=== PATIENT | female | born 1960 | race Caucasian/White ===

== ENCOUNTER 2024-10-25 09:58 | Outpatient (REF) | payer OTHER, SELFPAY ==
[2024-10-25 11:54] LABS: MANUAL DIFF FLAG NO
[2024-10-25 12:30] LABS: Basophils Absolute Auto 0.1 X10*3/uL (0.0-0.2); Basophils Percent Auto 1.4 % (0-2); Eosinophils Absolute Auto 0.2 X10*3/uL (0.0-0.4); Eosinophils Percent Auto 2.8 % (0-4); Hematocrit 41.7 % (37.0-47.0); Hemoglobin 13.3 g/dl (12.0-16.0); Imm Gran Abs Auto 0.01 X10*3/uL (0.00-0.03); Imm Gran Pct Auto 0.2 % (0.0-0.4); Lymphocytes Absolute Auto 1.2 X10*3/uL (1.2-4.9); Lymphocytes Percent Auto 19.3 % (20-40); Mean Corpuscular HGB Conc 31.9 g/dl (31.0-35.0); Mean Corpuscular Hemoglobin 27.4 pg (27.0-33.0); Mean Corpuscular Volume 85.8 fL (80.0-98.0); Mean Platelet Volume 9.2 fL (9.4-12.3); Monocytes Absolute Auto 0.7 X10*3/uL (0.1-1.2); Monocytes Percent Auto 11.2 % (2-11); Neutrophils Absolute Auto 4.2 x10*3/uL (2.0-8.3); Neutrophils Percent Auto 65.1 % (45-73); Platelet Count 377 X10*3/uL (160-400); Red Blood Count 4.86 X10*6/uL (4.20-5.50); Red Cell Distribution Width 13.7 % (11.0-16.0); White Blood Count 6.4 X10*3/uL (4.8-10.8)
[2024-10-25 12:58] LABS: Alanine Aminotransferase 26 U/L (0-31); Aspartate Amino Transferase 27 U/L (5-31); Estimated Glomerular Filt Rate > 60
== END 2024-10-25 09:59 | disposition home or self-care (01) ==
LOC: HO.LAB 09:58
PROVIDERS: Visit Provider Internal Medicine Rheumatology
DX: M70.61 Trochanteric bursitis, right hip (principal); M70.62 Trochanteric bursitis, left hip; M17.0 Bilateral primary osteoarthritis of knee; Z79.1 Long term (current) use of non-steroidal anti-inflammatories (NSAID)
CPT/HCPCS: 36415; 82565; 84450; 84460; 85025

== ENCOUNTER 2024-10-25 09:58 | Outpatient (AMB) | payer OTHER, SELFPAY ==
--- NOTE | 2024-10-25 10:17 | A.OFFVIS_ITS ---
Vital Signs 10/25/24 10:31 Height 5 ft 7 in Weight 238 lb 8.642 oz BMI 37.4 BP 130/92 H Blood Pressure Location Lt brachial Position Sitting Respiration 16 Pulse 63 Pulse Source Pulse Oximeter Pulse Oximetry (%) 97 Oxygen Delivery Method Room Air Intake Visit Reasons: OA/ATC MED REC RECIEVED Intake Note: Patient presents for OA. All my joints hurt but both hips and both knees hurt the most. I get some relieve from my medications. Allergies No Known Allergies Allergy (Verified 10/25/24 10:20) HPI HPI OA/ATC MED REC RECIEVED: Details: In the last month she has been experiencing bilateral hip pain worse at night when she sleeps on her sides. She has had benefit with increasing dose of diclofenac from 50 mg twice a day to 75 mg b.i.d.. She participated in physical therapy after last visit to strengthen her knees. At this time she is busy taking care of her 2 grandchildren and has not had the time to do a home exercise program. [facility] Social History (Updated 10/25/24 @ 10:31 by Mala Reed [facility]) Household Members: Children Housing: Apartment Alcohol intake: current Comment: [facility] Patient Tobacco Use Status: Never used Tobacco Review of Systems Const All systems reviewed & are unremarkable except as noted in HPI and below Physical Exam Vital Signs: Last Vital Signs Pulse 63 10/25/24 10:31 Resp 16 10/25/24 10:31 BP 130/92 H 10/25/24 10:31 Pulse Ox 97 10/25/24 10:31 Oxygen Delivery Method Room Air 10/25/24 10:31 BMI result Body Mass Index 37.4 Const Other: General: Comfortable CVS: RRR Respiratory: clear to auscultation bilaterally. Good respiratory effort Skin: No lesions seen MSK: Bilateral trochanteric bursa tenderness was found. Good range of motion of bilateral hips. No tenderness along joint line of bilateral knees. Knee flexion 120 degrees bilateral. Office Procedures AMB Joint Injection/Aspiration Joint Injection/Aspiration Details: Bilateral trochanteric bursae were injected Prep: site was prepped using aseptic technique Injected: 40 mg of, Kenalog, with 1 mL of and 1% plain lidocaine Procedure: The patient tolerated the procedure well Coding 59233 - Large joint Additional procedure code (CPT) needed (Modifier for bilateral procedures needed) Office Meds Kenalog 40 mg/mL suspension for injection Performing Provider: Iftikhar Hurst MD Performing Location: [facility] Administered by: Iftikhar Hurst MD on 10/25/24 13:34 Dose Route Admin Location Dispensed Lot Number Expiration Date [facility] Chronometer Tester 40 mg intrabursal Right trochanteric bursa 1 mL AP [id number] [employer] 40 mg intrabursal Left trochanteric bursa 1 mL AP 240 400 [id number] [employer] lidocaine (PF) 10 mg/mL (1 %) injection solution Performing Provider: Iftikhar Hurst MD Performing Location: [facility] Rheumatology[facility] Administered by: Iftikhar Hurst MD on 10/25/24 13:34 Dose Route Admin Location Dispensed Lot Number Expiration Date [facility] Chronometer Tester 10 mg Infiltration Right trochanteric bursa 2 mL [id number] [employer] 10 mg Infiltration Left trochanteric bursa 2 mL [id number] [employer] Assessment & Plan Assessment & Plan (1) Trochanteric bursitis of both hips: Comment: Recent exacerbation. She has had benefit with trochanteric bursa cortisone injections in the past. Code(s): M70.61 - Trochanteric bursitis, right hip; M70.62 - Trochanteric bursitis, left hip Category: Medical Plan: Bilateral trochanteric bursa cortisone injections were given Continue diclofenac 75 mg b.i.d. She will take 2 Tylenol 650 mg tablets b.i.d. Labs for drug monitoring chronic NSAID ordered I encouraged patient to restart exercises learned from physical therapy in the past Return to clinic 3 months (2) custodial (current) use of non-steroidal anti-inflammatories (nsaid): Code(s): Z79.1 - custodial (current) use of non-steroidal anti-inflammatories (NSAID) Category: Medical Plan: See above (3) Osteoarthritis of knees, bilateral: Comment: She had initial benefit when she was participating in physical therapy but she has not been compliant with exercises at home recently. Code(s): M17.0 - Bilateral primary osteoarthritis of knee Category: Medical Plan: I encouraged her to restart exercise learned from physical therapy Continue diclofenac 75 mg b.i.d. with food She will take 2 Tylenol 650 mg b.i.d. Labs for drug monitoring on chronic NSAID due today Return to clinic in 3 months Orders: Orders Aspartate Amino Transferase Today Z79.1 - custodial (current) use of non- steroidal anti-inflammatories (NSAID) Creatinine Today Z79.1 - custodial (current) use of non-steroidal anti- inflammatories (NSAID) Complete Blood Count Auto Diff Today Z79.1 - custodial (current) use of non- steroidal anti-inflammatories (NSAID) Alanine Aminotransferase Today M17.0 - Bilateral primary osteoarthritis of knee, M70.61 - Trochanteric bursitis, right hip, M70.62 - Trochanteric bursitis, left hip, Z79.1 - custodial (current) use of non-steroidal anti-inflammatories (NSAID) AMB Joint Injection/Aspiration Today M70.61 - Trochanteric bursitis, right hip, M70.62 - Trochanteric bursitis, left hip Coding Level of Care Code Est Pt Level 3 (38073) Complex EM visit Add On G2211 Diagnoses Trochanteric bursitis of both hips M70.61; M70.62 custodial (current) use of non-steroidal anti-inflammatories (nsaid) Z79.1 Osteoarthritis of knees, bilateral M17.0 CPT Codes Coding - Large joint: 88233 - Large joint ([id number])
[2024-10-25 10:31] VITALS: BP 130/92; PULSE 63; RESP 16; O2SAT 97; BMI 37.4
== END 2024-10-25 11:09 | disposition home or self-care (01) ==
PROVIDERS: Visit Provider Internal Medicine Rheumatology
DX: M70.61 Trochanteric bursitis, right hip (principal); M70.62 Trochanteric bursitis, left hip; Z79.1 Long term (current) use of non-steroidal anti-inflammatories (NSAID); M17.0 Bilateral primary osteoarthritis of knee
CPT/HCPCS: 20610; 99214

== ENCOUNTER 2025-01-25 10:06 | Outpatient (AMB) | payer OTHER, SELFPAY ==
--- NOTE | 2025-01-25 10:11 | A.OFFVIS_ITS ---
Vital Signs 01/25/25 10:19 Height 5 ft 7 in Weight 231 lb 0.711 oz BMI 36.2 BP 136/86 Blood Pressure Location Lt brachial Position Sitting Pulse 78 Pulse Source Pulse Oximeter Pulse Oximetry (%) 98 Oxygen Delivery Method Room Air Intake Visit Reasons: Follow Up 3mo Intake Note: Patient presents for OA follow up. Allergies No Known Allergies Allergy (Verified 01/25/25 10:20) HPI Comments Details: Right trochanteric bursa pain is greater than left trochanteric bursa pain. She had increased pain after shoveling snow and required a long time to recover. Today she feels that she has less pain overall. [facility] Social History (Updated 10/25/24 @ 10:31 by CORDELL Marroquin) Household Members: Children Housing: Apartment Alcohol intake: current Comment: O[facility] Patient Tobacco Use Status: Never used Tobacco Review of Systems Const All systems reviewed & are unremarkable except as noted in HPI and below Physical Exam Vital Signs: Last Vital Signs Pulse 78 01/25/25 10:19 BP 136/86 01/25/25 10:19 Pulse Ox 98 01/25/25 10:19 Oxygen Delivery Method Room Air 01/25/25 10:19 BMI result Body Mass Index 36.2 Const Other: General: Comfortable MSK: Bilateral trochanteric bursa tenderness was found. Good range of motion of bilateral hips. No tenderness along joint line of bilateral knees. Knee flexion 120 degrees bilateral. Office Procedures AMB Joint Injection/Aspiration Joint Injection/Aspiration Details: Right trochanteric bursa Prep: site was prepped using aseptic technique Injected: 40 mg of, Kenalog, with 1 mL of and 1% plain lidocaine Procedure: The patient tolerated the procedure well. Postprocedure protocol was discussed with patient. Coding 50763 - Large joint Procedure code (CPT) selection complete Office Meds lidocaine (PF) 10 mg/mL (1 %) injection solution Performing Provider: Iftikhar Hurst MD Performing Location: [facility]ology[place] Administered by: Iftikhar Hurst MD on 01/25/25 23:07 Dose Route Admin Location Dispensed Lot Number Expiration Date NDC [employer] 10 mg Infiltration 2 mL [id number] [facility] Kenalog 40 mg/mL suspension for injection Performing Provider: Iftikhar Hurst MD Performing Location: [facility] Administered by: Iftikhar Hurst MD on 01/25/25 23:07 Dose Route Admin Location Dispensed Lot Number Expiration Date [facility] Gleason Operator 40 mg intrabursal 1 mL AP [id number] [employer] Assessment & Plan Assessment & Plan (1) Trochanteric bursitis of both hips: Comment: Right trochanteric bursa pain is greater than left. History: She has required recurrent cortisone injections. Last cortisone injection of bilateral trochanteric bursae was 09/2024, right 01/25/2025. She is on diclofenac 75 mg b.i.d. Code(s): M70.61 - Trochanteric bursitis, right hip; M70.62 - Trochanteric bursitis, left hip Category: Medical Plan: Patient received right trochanteric bursa cortisone injection this visit Continue exercises learned from PT in the past She will take Tylenol as needed for pain control Continue diclofenac 75 mg b.i.d. Labs for drug monitoring on chronic NSAID ordered. 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 Aspartate Amino Transferase Today Z79.60 - retirement (current) use of unspecified immunomodulators and immunosuppressants Creatinine Today Z79.60 - retirement (current) use of unspecified immunomodulators and immunosuppressants AMB Joint Injection/Aspiration Today M70.61 - Trochanteric bursitis, right hip, M70.62 - Trochanteric bursitis, left hip Medications: New lidocaine (PF) 10 mg Infiltration ONCE 1 mL 0RF M70.61 - Trochanteric bursitis, right hip, M70.62 - Trochanteric bursitis, left hip Kenalog (triamcinolone acetonide) 40 mg intrabursal ONCE 1 mL 0RF NS M70.61 - Trochanteric bursitis, right hip, M70.62 - Trochanteric bursitis, left hip Refilled diclofenac sodium Take 1 tablet twice a day with food 75 mg PO BID 180 tabs 1RF Coding Level of Care Code Est Pt Level 4 (79923) Complex EM visit Add On G2211 Diagnoses Trochanteric bursitis of both hips M70.61; M70.62 CPT Codes Coding - 42008 Large joint: 91610 - Large joint ([id number]) Time Spent (min) 20
[2025-01-25 10:19] VITALS: BP 136/86; PULSE 78; O2SAT 98; BMI 36.2
--- OUTSIDE RECORDS SUMMARY | 2025-01-25 12:11 | XMS_ITS | Clinical Summary ---
Author Organization [facility] Address [phone] [facility] [place] [address] Care Team Providers Care Dumpster Driver Name Role Phone Emilie Abbasi MD Unavailable [phone] Alyce Woods [facility] Primary Care Provid er Victor M Oquendo MD Unavailable [phone] Allergies Active Allergy Reactions Criticality Noted Date Comments Adhesive Tape-Silicones 09/17/2017 Other reaction(s): irritation Medications Medication Sig Dispensed Refills Start Date End Date Status flecainide (TAMBOCOR) 150 MG tablet Take 150 mg by mouth daily as needed. Up to 300 mg/day Active cyclobenzaprine (FLEXERIL) 5 MG tablet Take 5 mg by mouth nightly at bedtime as needed. 06/11/2022 Active olopatadine (PATANASE) 0.6 % SpryIndications:Chr onic rhinitis 2 sprays by Nasal route 2 (two) times a day. (One spray each nostril). 30.5 g 1 11/02/2023 Active cholecalciferol (VITAMIN D3) 2,000 unit capsuleIndications: Vitamin D deficiency, unspecified Take 1 capsule (2,000 Units total) by mouth daily. 90 capsule 3 11/13/2023 Active omeprazole (PRILOSEC) 20 MG capsuleIndications: Gastroesophageal reflux disease, unspecified whether esophagitis present Take 1 capsule (20 mg total) by mouth daily. 1 po qd prn GERD 90 capsule 3 04/27/2024 Active minoxidiL (LONITEN) 2.5 MG tablet Take 0.5 tablets by mouth daily. 05/11/2024 Active diclofenac sodium (VOLTAREN) 75 MG EC tablet Take 75 mg by mouth 2 (two) times a day with meals. 03/25/2024 Active metoprolol succinate (TOPROL-XL) 25 MG 24 hr tabletIndications:B enign essential hypertension Take 1 tablet (25 mg total) by mouth daily. 90 tablet 3 05/30/2024 Active lisinopril (PRINIVIL,ZESTRIL) 5 MG tabletIndications:B enign essential hypertension Take 1 tablet (5 mg total) by mouth daily. 90 tablet 3 05/30/2024 Active acetaminophen-codei ne (TYLENOL #4) 300-60 mg per tablet Take 1 tablet by mouth every 4 (four) hours as needed for pain (specific location in comments). 15 tablet 06/07/2024 Active alendronate (FOSAMAX) 70 MG tabletIndications:A ge-related osteoporosis without current pathological fracture Take 1 tablet (70 mg total) by mouth every 7 days. Take in the morning with a full glass of water, on an empty stomach, and do not take anything else by mouth or lie down for the next 30 min. 12 tablet 3 06/22/2024 Active levothyroxine (SYNTHROID, LEVOTHROID) 100 MCG tabletIndications:H ypothyroidism Take 1 tablet (100 mcg total) by mouth daily. 90 tablet 3 06/27/2024 Active azelastine (ASTEPRO) 205.5 mcg (0.15 %) SpryIndications:Chr onic rhinitis 1 spray by Each Nare route 2 (two) times a day. 30 mL 1 11/14/2024 Active ketoconazole 2 % creamIndications:Ca ndidal intertrigo Apply 1 Application topically daily as needed. Treat rashes until resolved, follow-up if not resolved with >14 days of continuous use. 30 g 1 11/14/2024 Active metroNIDAZOLE (METROCREAM) 0.75 % creamIndications:Ro sacea Apply topically 2 (two) times a day. 45 g 1 11/14/2024 Active Active Problems Problem Noted Date Diagnosed Date Constipation 11/14/2024 Assessment & Plan (11/14/2024 12:44 PM EST): Recently worse constipation, has a bowel movement only every few days at baseline. MiraLAX was recommended as a stool softener, and senna was suggested as a gentle laxative. If constipation persists for more than 5 days, milk of magnesia or magnesium citrate can be used. She was instructed to take half a bottle of magnesium citrate before bedtime and the other half upon waking if no bowel movement occurs. If these measures fail, a Dulcolax suppository or enema may be considered. Once bowel movements normalize, she should maintain a diet rich in various fibers. Rosacea 11/14/2024 Assessment & Plan (11/14/2024 12:52 PM EST): Facial redness, worse since the change in season, most c/w rosacea. She was advised to apply metronidazole 0.75% twice daily during flare-ups. If there is no improvement after a few weeks, she should inform us so that alternative treatments can be considered. Candidal intertrigo 11/14/2024 Assessment & Plan (11/14/2024 12:51 PM EST): Rashes between abdominal/groin folds managed with topical ketoconazole. Likely candidal intertrigo vs tinea corporis. She was advised to apply ketoconazole cream once daily until the issue resolves. If there is no improvement after 2 weeks, she should follow up. Lower leg mass, left 06/22/2024 Assessment & Plan (08/02/2024 5:47 PM EDT): The swelling in her left leg may be due to a lipoma or a deep varicose vein. A targeted ultrasound of the left leg was recommended for further investigation. If the ultrasound confirms a lipoma and it is not causing pain, treatment is optional unless it becomes larger or for cosmetic reasons. Senile purpura 05/13/2024 Assessment & Plan (05/13/2024 11:35 AM EDT): Senile purpura noted on both arms. This is an age-related condition characterized by increased fragility of the capillaries. This condition is typically harmless and does not require any specific preventive measures. Pt does not feel these are her highest concern, most other areas of bruising are explained except some areas on her abdomen. Abnormal bruising 05/13/2024 Assessment & Plan (05/13/2024 11:37 AM EDT): C/o easy bruising. Does remember incidents of trauma prior to onset of bruising particularly in her left lower leg, this has been slow to heal likely due to circulation issues/suspected venous insufficiency and also dependent blood pooling. It is certainly possible she has bumped into things but she does not remember particular incidents where she would have bruised her abdomen or the affected area on her left forearm just below her wrist. A complete blood count (CBC) with platelet count will be ordered to further investigate this issue. Seborrheic keratosis of scalp 05/13/2024 Assessment & Plan (11/14/2024 12:56 PM EST): Multiple SK of scalp w/ stable lesion of right mormon. Reviewed benign nature of lesions. Reviewed indications for treatment are generally related to mechanical symptoms of irritation but not for cosmetic purposes. Plan for observation at this time. Assessment & Plan (05/13/2024 11:38 AM EDT): The patient has seborrheic keratoses on her scalp, which are generally benign in nature. The patient was advised to monitor the lesions for any changes. She may follow-up with her line technician for further evaluation and potential removal of the lesions, especially if they become irritated/inflamed or are getting caught when she is brushing or combing her hair. Osteoporosis 10/28/2023 10/28/2023 Assessment & Plan (11/14/2024 12:50 PM EST): Stable, continues on Fosamax weekly. Consider repeat bone density test in 1 year, due May 2025. Assessment & Plan (08/02/2024 5:47 PM EDT): The bone density test results indicate osteopenia in the femur bones and osteoporosis in other areas. The primary goal is to prevent fractures. She was advised to engage in weight-bearing exercises such as walking and resistance training and to ensure adequate intake of calcium (1200 mg daily) and vitamin D. A prescription for alendronate 70 mg once a week was provided, to be taken in the morning with a full glass of water on an empty stomach, ensuring she remains upright for at least 30 minutes post-consumption. Potential side effects, including esophagitis, were discussed, especially given her history of heartburn managed with omeprazole. If Fosamax proves unsuitable, an endocrinology referral will be considered to discuss alternative treatment options. A follow-up bone density test is recommended in one year to assess progress. Assessment & Plan (12/27/2023 11:13 PM EST): History of osteopenia. Menopausal since her 40's. Last bone density scan many years ago. No history of fracture. Unclear stability, updated DEXA pending. Vitamin d low, increase supplementation. Continue regular weightbearing activity and good dietary intake of calcium. Assessment & Plan (11/13/2023 10:38 AM EST): History of osteopenia. Menopausal since her 40's. Last bone density scan many years ago. No history of fracture. Unclear stability, updated DEXA ordered. Recent fatigue, check vitamin d. Continue regular weightbearing activity and good dietary intake of calcium. Hair loss 10/28/2023 Assessment & Plan (05/13/2024 11:48 AM EDT): Subjective hairloss without rash to scalp. No patches of hair loss/alopecia. Recently prescribed low dose minoxidil by dermatology but has not yet started. OK per cardiology. Assessment & Plan (11/13/2023 10:34 AM EST): Subjective hairloss without rash to scalp. No patches of hair loss/alopecia. Will r/o anemia and iron deficiency. Chronic rhinitis 10/28/2023 Assessment & Plan (11/14/2024 12:47 PM EST): Chronic rhinitis, worse this time of year. Managed with antihistamine nasal spray, needs rf. Assessment & Plan (11/13/2023 10:39 AM EST): Chronic nose running without clear cause. Reasonable to trial antihistamine nasal spray, risks/benefits/side effects reviewed. Available OTC, rx sent to explore insurance coverage. MENDEZ (obstructive sleep apnea) 12/20/2022 Assessment & Plan (11/14/2024 12:47 PM EST): Stable, continue regular use of CPAP >4 hours nightly. Assessment & Plan (05/13/2024 11:40 AM EDT): Stable, continue regular use of CPAP >4 hours nightly. Assessment & Plan (11/13/2023 10:31 AM EST): Stable, continue regular use of CPAP nightly. Recent general fatigue but no daytime somnolence. Assessment & Plan (05/01/2023 6:12 PM EDT): Continue CPAP Assessment & Plan (12/20/2022 5:05 PM EST): Using CPAP every night Hypothyroidism 12/19/2022 Assessment & Plan (11/14/2024 12:53 PM EST): Stable, clinically euthyroid. Continue current dose levothyroxine. Monitor TSH. Assessment & Plan (05/13/2024 11:42 AM EDT): Stable, continue current dose levothyroxine. Monitor TSH. Assessment & Plan (12/27/2023 11:13 PM EST): Stable, TSH 2.86. Continue current dose levothyroxine. Assessment & Plan (11/13/2023 10:31 AM EST): Known hypothyroid on levothyroxine. Unclear stability, persistent fatigue, check labs. Assessment & Plan (05/01/2023 6:11 PM EDT): Stable on med Assessment & Plan (12/20/2022 5:00 PM EST): C/o fatigue ? hashioto's + fam hx Check labs Vitamin D deficiency 12/19/2022 Assessment & Plan (11/14/2024 12:52 PM EST): Continues on vitamin d supplement, check level. Assessment & Plan (05/13/2024 11:39 AM EDT): The patient's vitamin D levels were found to be low during her last evaluation. The patient was advised to continue her current regimen of vitamin D supplementation once a week. Her vitamin D levels will be reassessed during her upcoming lab work. Assessment & Plan (12/27/2023 11:11 PM EST): Vitamin d low at 27, resume/increase supplement. Rx ordered to explore insurance coverage. Assessment & Plan (12/20/2022 5:03 PM EST): Unclear if stable, check lab Impaired fasting glucose 12/19/2022 Assessment & Plan (05/13/2024 11:45 AM EDT): Hx IFG, improved with weight loss and other lifestyle changes/exercise. Has regained most of the weight she lost. Monitor FBG and A1c. Assessment & Plan (05/01/2023 6:11 PM EDT): Improved with wt loss and exercise Assessment & Plan (12/20/2022 5:00 PM EST): Prediabetes: As discussed during visit today, Educated re risk of Diabetes and lifestyle changes needed Hyperlipidemia 12/19/2022 Assessment & Plan (11/14/2024 12:48 PM EST): Not on cholesterol medication. Monitor lipids, last done in Dec 2022 and WNL. Assessment & Plan (05/13/2024 11:43 AM EDT): Not on cholesterol medication. A cholesterol panel will be included in her upcoming blood work. Assessment & Plan (05/01/2023 6:11 PM EDT): Controlled on meds Assessment & Plan (12/20/2022 5:00 PM EST): Unclear if stable, check lab Multiple thyroid nodules 12/19/202210/28/ 023 Assessment & Plan (12/20/2022 5:01 PM EST): Check thyroid abx Chronic fatigue 12/19/2022 Assessment & Plan (05/13/2024 11:47 AM EDT): >>ASSESSMENT AND PLAN FOR MALAISE AND FATIGUE WRITTEN ON 12/20/2022 5:00 PM BY EMILIE ABBASI MD Likely multifactorial, focus on healthy diet and exercise, Check labs Assessment & Plan (05/13/2024 11:47 AM EDT): >>ASSESSMENT AND PLAN FOR MALAISE AND FATIGUE WRITTEN ON 05/01/2023 6:11 PM BY EMILIE ABBASI MD Unclear etiology Labs WNL Using cpap Continue healthy diet and exercise Monitor for now Assessment & Plan (05/13/2024 11:44 AM EDT): Chronic fatigue, likely multifactorial. The patient's fatigue could be attributed to her current medication regimen, particularly metoprolol, which is known to induce fatigue at higher doses. However, she is on the lowest possible dose of this medication. It is also plausible that her fatigue is a symptom of her atrial fibrillation. Despite her efforts to maintain a healthy lifestyle, including regular exercise and a balanced diet, her fatigue persists. A comprehensive blood workup will be conducted to rule out other potential causes of her fatigue, such as anemia or thyroid dysfunction. If her lab results are unremarkable, a consultation with her ground products director may be beneficial to explore alternative treatment options for her A-fib. The possibility of initiating Wellbutrin therapy was discussed, but the patient expressed a preference to avoid additional medications at this time. We discussed the importance of regular exercise in the management of chronic fatigue. Assessment & Plan (11/13/2023 10:35 AM EST): Chronic fatigue of unclear etiology. Using CPAP nightly. Check labs. Continue healthy diet, regular exercise and good sleep hygiene. Class 2 obesity with body ma ss index (BMI) of 37.0 to 37.9 in adult 09/15/2022 Assessment & Plan (11/14/2024 12:47 PM EST): Weight stable, BMI 37.75. Continue efforts re: healthy, balanced diet and active lifestyle. Assessment & Plan (05/13/2024 11:41 AM EDT): Weight stable, BMI 36.02. Continue efforts re: healthy, balanced diet and active lifestyle. Struggles with regular physical activity due to persistent fatigue. Assessment & Plan (11/13/2023 10:33 AM EST): Weight stable, continue efforts re: healthy, balanced diet and active lifestyle. Assessment & Plan (05/01/2023 6:10 PM EDT): congrats on wt loss! Continue healthy diet and exercise Assessment & Plan (12/20/2022 4:59 PM EST): Long discussion today regarding need for healthy diet, exercise, weight loss Assessment & Plan (11/14/2022 12:17 PM EST): Likely contributing to issues, including SOB Atrial fibrillation 09/15/2022 Assessment & Plan (11/14/2024 12:46 PM EST): Stable PAF. Continues on daily metoprolol and flecainide PRN. No recent symptoms, can tell when she is in Afib. Off of anticoagulation, may consider resuming once >age 65. Followed by cardiology (Dr Oquendo), most recent note reviewed. Assessment & Plan (05/13/2024 11:41 AM EDT): Stable PAF. Continues on daily metoprolol and flecainide PRN. No recent symptoms, can tell when she is in Afib. Off Xarelto per cardiology (Sonny Fox) with plans to resume after age 66. Continues to bruise easily even off of AC. Check platelets. Assessment & Plan (12/27/2023 11:12 PM EST): Stable PAF. Continues on daily metoprolol and flecainide PRN. No recent symptoms, can tell when she is in Afib. Off Xarelto per cardiology (Sonny Oquendo) with plans to resume after age 66. Continues to bruise easily even off of AC. Assessment & Plan (10/28/2023 1:19 PM EST): Stable PAF. Continues on daily metoprolol and flecainide PRN. Off Xarelto per cardiology (Sonny Oquendo) with plans to resume after age 66. Continues to bruise easily even off of AC. Assessment & Plan (05/01/2023 6:12 PM EDT): Stable Off xarelto per cards F/u Cardiology Assessment & Plan (12/20/2022 5:02 PM EST): Currently in Sinus Rhythm, patient educated on red flags and concerning sxs Assessment & Plan (11/14/2022 12:18 PM EST): Per patient, cardiology states she's okay Takes prn fleicanide for tachy episodes Benign essential hypertension 09/15/2022 Assessment & Plan (11/14/2024 12:45 PM EST): Stable, BP today at goal <130/80. Continues on lisinopril and metoprolol, tolerating well without cough or dizziness. Continue self-care, low salt diet and physical activity. Assessment & Plan (05/13/2024 11:40 AM EDT): Stable, BP today at goal <130/80. The patient's blood pressure readings have consistently been within the optimal range of 120s over 60s to 70s, which is commendable. She is currently on a minimal dosage of antihypertensive medications. Continue self-care, low salt diet and physical activity. DM visit q6 mos, f/u sooner PRN. Assessment & Plan (12/27/2023 11:15 PM EST): Stable, BP today at goal <130/80. Continues on low dose lisinopril and metoprolol daily. Tolerating well w/o dizziness or cough. No medication changes needed. Hx of MENDEZ well maintained on CPAP. Recent labs w/ normal kidney fx. Continue self- care, low salt diet and physical activity. DM visit q6 mos, f/u sooner PRN. Assessment & Plan (11/13/2023 10:30 AM EST): Uncontrolled, BP today above goal <130/80. Continues on low dose lisinopril and metoprolol daily. Tolerating well w/o dizziness or cough. Hx of MENDEZ well maintained on CPAP. Denies recent headaches, is feeling fatigued. No hx of kidney disease. Check labs and f/u in 2 weeks for BP re-check, may need antihypertensives increased vs adding another med. Continue self-care, low salt diet and physical activity. Assessment & Plan (05/01/2023 6:10 PM EDT): Stable on meds Assessment & Plan (12/20/2022 4:59 PM EST): Controlled on meds Assessment & Plan (11/14/2022 12:16 PM EST): Controlled on meds Gastroesophageal reflux disease 09/15/2022 Assessment & Plan (08/02/2024 5:50 PM EDT): Stable, continues on omeprazole daily. Discussed risk for worse esophagitis with starting Fosamax, she will monitor for any changes with new medication. Continue avoidance of known food triggers. Assessment & Plan (05/01/2023 6:10 PM EDT): As discussed, please follow a GERD diet, minimize precipitating factors, medication as needed. Assessment & Plan (11/14/2022 12:18 PM EST): As discussed, please follow a GERD diet, minimize precipitating factors, medication as needed. Pain in left foot 01/23/2020 Pain in right foot 01/23/2020 Equinus deformity of both feet 01/23/2020 Flat foot 01/23/2020 Gastrocnemius equinus of left lower extremity Gastrocnemius equinus of right lower extremity 0 01/23/2020 Resolved Problems Problem Noted Date Diagnosed Date Resolved Date COVID-19 08/05/2024 11/14/2024 Assessment & Plan (08/05/2024 1:40 PM EDT): Positive home COVID antigen test w/ symptoms: dry cough and low grade fever. At high risk for severe symptoms of COVID given PMH HTN and Afib. Immunized for COVID but not boosted. Meets criteria for oral antiviral tx, risks/benefits/side effects reviewed. Declines rx for Paxlovid at this juncture. She was made aware if she changes her mind it would need to be started within 5 days of symptom onset to be effective. She is not so unwell as to need to go to the ER immediately. No s/sx of hypoxia, no indications at this time for an in-office visit. Reviewed indications for urgent eval/ED visit. Continue supportive care, rest, plenty of oral fluids, cough/deep breathing. Follow-up as needed for worsening symptoms, if fever worsens or persists, or failure to improve. Acute cough 08/05/2024 11/14/2024 Assessment & Plan (08/05/2024 1:42 PM EDT): Persistent, non-productive/dry cough - interrupting sleep. OTC cough medications not effective, also drinking tea with honey. Discussed non-drowsy and nighttime cough medications, risks/benefits/side effects reviewed. Rx sent for daytime tessalon and nighttime codeine cough syrup. The patient was advised to make sure she has clear pathways to reduce risk for falls if up at night. She is aware not to combine codeine with alcohol or drive after taking. Tenderness of left temporomandibular joint 12/19/2022 05/13/2024 Assessment & Plan (12/20/2022 5:02 PM EST): New complaint I've rec'd she see her Dentist for this SOB (shortness of breath) 11/14/2022 Assessment & Plan (05/01/2023 6:12 PM EDT): Improved Declines PFTs currently Assessment & Plan (12/20/2022 5:02 PM EST): Per patient cardiology says it's not cardiac Check PFTs Assessment & Plan (11/14/2022 12:19 PM EST): Unclear etiology per patient, SOB not cardiac per Cards Unclear etiology Check PFTs Encounters Date Type Department Care Team Description 12/28/2024 Orders Only [facility] Health Info Management Virtual Department [address] [place] [address] ProviderGrady MD 11/14/2024 10:30 AM EST Office Visit [facility] [address] [place] [address] [place] [id number] Alyce Woods, [place] Encounter for health maintenance examination in adult (Primary Dx); Encounter for screening for depression; Influenza vaccination declined; Constipation, unspecified constipation type; Chronic rhinitis; Candidal intertrigo; Rosacea; Mixed hyperlipidemia; Hypothyroidism, unspecified type; Age-related osteoporosis without current pathological fracture; Benign essential hypertension; Paroxysmal atrial fibrillation; Class 2 severe obesity due to excess calories with serious comorbidity and body mass index (BMI) of 37.0 to 37.9 in adult; MENDEZ (obstructive sleep apnea); Vitamin D deficiency; Seborrheic keratosis of scalp from Last 3 Months Immunizations Name Administration Dates Next Due COVID-19 (Pre-09/21) Marie Vaccine, [id number], PF 03/07/2021 Influenza Quadrivalent Prese rvative Free IM 10/28/2023,09/15/2022 Td, unspecified formulation 02/01/2001 Tdap 09/12/2024, 2,04/16/2015,2009 Zoster recombinant 12/19/2022,11/26/2019 Family History Medical History Relation Comments Hypertension Father Dementia Mother Hypertension Mother Osteoporosis Mother Breast cancer Paternal Grandmother Osteoporosis Sister Colon cancer Neg Hx Diabetes Neg Hx Heart disease Neg Hx Relation Status Comments Father Mother Paternal Grandmother Sister Social History Tobacco Use Types Packs/Day Years Used Date Smoking Tobacco: Never Smokeless Tobacco: Never Tobacco Cessation:Counseling Given: Not Answered Alcohol Use Standard Drinks/Week Comments Not Currently 0 (1 standard drink = 0.6 oz pur e alcohol) very rare Child or Family Care Answer Date Record ed Do you have problems with on e of the following making it difficult for you to work, study, or receive health care? No 11/07/2024 Education Answer Date Recorded Are you interested in help w ith more adult education (for example, completing high school, GED, job training, learning the [place] language, technical skills, or developing parenting skills)? No 11/07/2024 Are you concerned about learning? Not on file 11/07/2024 No 11/07/2024 Yes 11/07/2024 Food Answer Date Recorded Within the past 6 months we worried whether our food would run out before we got money to buy more. Never True 11/07/2024 Within the past 6 months the food we bought just didn't last and we didn't have enough money to get more. Never True Residential Stability Answer Date Recor ded What is your housing situation today? I have francostephon agudelo 11/07/2024 How many times have you move d in the past 12 months? Zero (I did not move) 11/07/2024 Paying for Meds Answer Date Recorded Do you have trouble paying for medicines? No 11/07/2024 Paying Utility Bills Answer Date Record ed Do you have trouble paying y our heating or electricity bill? I choose not to answer 11/07/2024 Transportation Answer Date Recorded Has the lack of transportati on kept you from medical appointments or from getting medications? No 11/07/2024 Digital Access Answer Date Recorded No 11/07/2024 Yes 11/07/2024 Do you have reliable internet access at home? Ye s 11/07/2024 Do you have a device (e.g., phone, tablet, computer) with a working camera? Yes 11/07/2024 Intimate Partner Violence Answer Date R ecorded Denied Basic Needs Not on file 11/07/2024 In the past 12 months have y ou been in a relationship with a person who hurts, threatens, or tries to control you? No 11/07/2024 Worried food would run out Not on file 11/07 In the past 12 months have y ou been in a relationship with a person who hurts, threatens, or tries to control you? No 11/07/2024 Sex and Gender Information Value Date Recorded Sex Assigned at Female 03/24/2022 12:52 PM EDT Gender Identity Female 03/24/2022 12:52 PM EDT Sexual Orientation Straight 03/24/2022 12 :52 PM EDT Last Filed Vital Signs Vital Sign Reading Time Taken Comments Blood Pressure 122/84 11/14/2024 10:31 AM EST Pulse 75 11/14/2024 10:31 AM EST Temperature 36.3 ??C (97.3 ??F) 11/14/2024 1 0:31 AM EST Respiratory Rate 18 09/15/2022 1:44 PM EDT Oxygen Saturation 97% 11/14/2024 10: 31 AM EST Inhaled Oxygen Concentration - - Weight 103.5 kg (228 lb 3.2 oz) 024 10:31 AM EST Height 165.6 cm (5' 5.2 ) 11/14/2024 10 :31 AM EST Body Mass Index 37.75 11/14/2024 10:31 AM EST Plan of Treatment Upcoming Encounters Date Type Department Care Team (Late st Contact Info) Description 05/19/2025 9:30 AM EDT Office Visit [address] [place] [address] Alyce Woods, [place] [address] [facility], [address] [place] [address] 11/20/2025 10:30 AM EST Office Visit [address] [place] [address] Alyce Woods, [place] [address] [facility], [address] [place] [address] Health Maintenance Due Date Last Done Comments HEPATITIS B SCREENING 1979 COLOGUARD 2006 FIT TEST 2006 FOBT 2006 SIGMOIDOSCOPY 2006 VIRTUAL COLONOSCOPY 2006 PNEUMOCOCCAL VACCINES (50+ years) (1 of 1 - PCV) 2011 RSV VACCINE (1 - Risk 60-74 years 1-dose series) 2021 COVID-19 VACCINE (2 - season) 2024 03/07/2021 CREATININE LEVEL 05/13/2025 05/13/2024, 11/2022, 01/26/2023, Additional history exists POTASSIUM LEVEL 05/13/2025 05/13/2024, 11/2022, 01/26/2023, Additional history exists TSH LEVEL 05/13/2025 05/13/2024, 11/2022, 01/26/2023, Additional history exists BLOOD PRESSURE 05/15/2025 11/14/2024 INFLUENZA VACCINE (#1) 2025 10/28/2023, 2021 Postponed from 06/30/2024 (Patient Declines / Guardian Declines) PAP SMEAR 07/10/2025 07/10/2020 DEPRESSION SCREENING 11/07/2025 11/07/2024 MAMMOGRAM 07/01/2026 07/01/2024, 10/30, 10/10/2021, Additional history exists SCREENING FOR DIABETES 05/13/2027 , 05/13/2024, 01/01/2022 LIPID PANEL 01/26/2028 01/26/2023, 12/2021, 01/01/2022, Additional history exists COLONOSCOPY 06/01/2029 06/01/2019 COLORECTAL CANCER SCREENING 06/01/2029 Adult Td,Tdap Booster 09/12/2034 09/12/2024 , 05/22/2022, 04/16/2015, Additional history exists ZOSTER VACCINES Completed 12/19/2022, 11/26/2019 HEPATITIS C SCREENING Completed 01/26/2023 HIV ONE-TIME SCREENING (18-65 YEARS) Completed 01/26/2023 SMOKING STATUS SCREENING (Once After 26 Yrs) Completed 11/14/2024 HEPATITIS A VACCINES Aged Out No long er eligible based on patient's age to complete this topic HEPATITIS B VACCINES Aged Out No long er eligible based on patient's age to complete this topic HIB VACCINES Aged Out No longer eligi ble based on patient's age to complete this topic MENINGOCOCCAL VACCINES (ACWY) Aged Out No longer eligible based on patient's age to complete this topic Medical Devices Not on file Procedures Procedure Name Priority Date/Time Associated Diagnosis Comments HM MAMMOGRAPHY Routine 07/01/2024 9:14 AM EDT TSH WITH REFLEX Routine 05/13/2024 9:52 AM EDT Hypothyroidism, unspecified type COMPREHENSIVE METABOLIC PANEL Routine 05/13/2024 9:52 AM EDT Chronic fatigue Impaired fasting glucose LIPID PANEL Routine 01/26/2023 9:51 AM EST Hyperlipidemia, unspecified hyperlipidemia type HEPATITIS C ANTIBODY, QUALITATIVE Routine 01/26/2023 9:51 AM EST Need for hepatitis C screening test OUTSIDE GLUCOSE FASTING Routine 01/01/2022 from Last 3 Months or Most Recently Relevant to Health Maintenance Results * MAMMOGRAPHY FOR RESULT ENTRY ONLY (07/01/2024 9:14 AM EDT) Mammogram BiRads1 Historical Provider MD SHITAL Paige * (ABNORMAL) Comprehensive metabolic panel (05/13/2024 9:52 AM EDT) SODIUM 139 133 - 146 mmol/L [facility] POTASSIUM 4.7 3.3 - 5.1 mmol/L [facility] CHLORIDE 103 96 - 108 mmol/L [facility] CO2 27 21 - 35 mmol/L [facility] BUN 17 6 - 19 mg/dL [facility] CREATININE 0.90 0.5 - 1.5 mg/dL [facility] GLUCOSE 112(H) 70 - 99 mg/dL [facility] ALBUMIN 4.1 3.9 - 4.8 g/dL [facility] TOTAL PROTEIN 6.7 6.5 - 8.0 g/dL [facility] CALCIUM 9.3 8.4 - 10.3 mg/dL [facility] ALKALINE PHOSPHATASE 122(H) 39 - 117 U/L [facility] TOTAL BILIRUBIN 0.3 0.0 - 1.2 mg/dL [facility] AST 26 0 - 37 U/L [facility] ALT 20 0 - 40 U/L [facility] GLOBULIN 2.6 1 - 4.8 g/dL [facility] EGFR 72 >59 mL/min/1.7 3m2 [facility] Comment:Estimated glomerular filtration rate calculated using the CKD-EPI refit equation. ANION GAP 14 10 - 20 mmol/L [facility] Blood 05/13/2024 9:52 AM EDT 05/13/2024 9:58 AM EDT Alyce Woods [facility] LAB BLOOD OR DERABLES Performing Organization Address [facility] de Phone Number [address] [address] * TSH with reflex (05/13/2024 9:52 AM EDT) TSH 4.13 0.27 - 4.20 uIU/mL [facility] Blood 05/13/2024 9:52 AM EDT 05/13/2024 9:58 AM EDT Alyce Woods [facility] LAB BLOOD OR DERABLES Performing Organization Address City/[facility] Co de Phone Number [address] [address] * Hepatitis C antibody, qualitative (01/26/2023 9:51 AM EST) HCV NON-REACTIV E NON-REACTI VE [facility] Blood 01/26/2023 9:51 AM EST 01/26/2023 9:56 AM EST Emilie Abbasi MD LAB BLOOD ORDERABLES Performing Organization Address City/[facility] Co de Phone Number [address] [address] * (ABNORMAL) Lipid panel (01/26/2023 9:51 AM EST) HDL 60 mg/dL [facility] Comment: ? Interpretation <40 mg/dL: Low HDL cholesterol (major risk factor for CHD) Greater than or equal to 60 mg/dL: High HDL cholesterol ( negative risk factor for CHD) HDL - cholesterol is affected by a number of factors, e.g. smoking, excerise, hormones, sex and age. CHOLESTEROL 170 0 - 240 mg/dL [facility] TRIGLYCERIDES 50 30 - 160 mg/dL [facility] LDL 100 50 - 129 mg/dL [facility] Comment: LDL levels in terms of risk for coronary heart disease: <100 mg/dL: Optimal 100-129 mg/dL: Near or above optimal 130-159 mg/dL: Borderline high 160-189 mg/dL: High >190 mg/dL: Very High CARDIAC RISK RATIO 2.8(L) 3.3 - 4.4 C [facility] Blood 01/26/2023 9:51 AM EST 01/26/2023 9:56 AM EST Emilie Abbasi MD LAB BLOOD ORDERABLES [address] [address] * Outside Glucose,Fasting (01/01/2022) Glucose, fasting - External 97 65 - 99 mg/dL Historical Provider LAB BLOOD ORDERAB LES from Last 3 Months or Most Recently Relevant to Health Maintenance Care Teams Dumpster Driver Relationship Specialty Start Date End Date Alyce Woods CNP [address] [place] [address], [address] [place] [address] PCP - General Family Medicine 10/28/23 Emilie Abbasi MD [address] [place] [id number] Internal Medicine 03/21/22 Victor M Oquendo MD [address] [place] [id number] Hydroelectric Station Operator Cardiac Electrophysiology 11/14/24 Additional Source Comments The information contained in this document represents components of the legal health record. It is not the complete legal health record.[facility]
--- OUTSIDE RECORDS SUMMARY | 2025-01-25 12:11 | XMS_ITS | Clinical Summary ---
Author Organization [facility] lin Address [address] [place] [address] Care Team Providers Care Hide And Skin Processing Worker Name Role Phone Emilie Freeman MD Primary Care Provider [phone] Immunizations Name Administration Dates Next Due Boostrix (Tdap) Prefilled Syringe 05/22/2022 Social History Tobacco Use Types Packs/Day Years Used Date Smoking Tobacco: Never Assessed Comments Unknown Sex and Gender Information Value Date Recorded Sex Assigned at Not on file Legal Sex Female 8:41 AM EDT Gender Identity Not on file Sexual Orientation Not on file Plan of Treatment Health Maintenance Due Date Last Done Comments Colorectal Cancer: COLONOSCO PY Screening every 10 yrs (or Modifier) 1961 Depression: Screening Annual ly using PHQ-2/9 in Adults 18 yrs or above (or HM Modifier)([facility]) 1979 Hepatitis C Virus Infection in Adolescents and Adults: Screening (or Modifier) ([facility]) 1979 [facility] Screening Reminder: Annually for all adults ([facility]) 1979 Tobacco Smoking Cessation: i n Adults excluding Women: Behavioral and Pharmacotherapy Interventions ([facility]) 1979 Cervical Cancer Screenin-65 yrs of age (or Modifier) 1982 Cervical Cancer Screening: P ap every 3 yrs pts age 21-65 1982 Cervical Cancer: Pap Screeni ng with Modifier timing ([facility]) 1982 Cervical Cancer: hrHPV alone or with cotesting Pap for Pts 30-65yrs screening every 5yrs ([facility]) 1982 Colorectal Cancer Screening 45 -75 Yrs (or HM Modifier) 2006 Colorectal Cancer: FLEXIBLE SIGMOIDOSCOPY Screening every 5 yrs 2006 Colorectal Cancer: Fecal Immunochemical Test (FIT) Annually [facility] 2006 Colorectal Cancer: High-sensitivity gFOBT Screening Annually [facility] 2006 Colorectal Cancer: Stool Cologuard Screening every 3 yrs 2006 Colorectal Cancer:CT Colonography Screening every 5 yrs 2006 Lipid Screening: Every 5 yrs for Women aged 45+ (or HM Modifier) ([facility]) 2007 Breast Cancer: Screening Annually age 50-74 yrs (or HM Modifier)([facility]) 2011 Zoster/Shingles Vaccine Seri es Screening: Adults aged 18+ yrs (or HM Modifiers)([facility]) (1 of 2) 2011 Flu Vaccination: Yearly for ages 18mos through 64 years (or Modifier)([facility]) 06/30/2024 COVID-19 Vaccine Screening: Initial Series and Booster Status ([facility]) ( - 2023- season) 2024 DTaP/Tdap/Td Vaccines ([facility]) (3 - Td or Tdap) 05/22/2032 05/22/2022, 09/27/2010 RSV Vaccines (1 - 1-dose 75+ series) 2036 Pneumococcal Vaccination Screening: Pts 0-19 & 19-64 yrs of age ([facility]) Aged Out No longer eligible based on patient's age to complete this topic Medical Devices Not on file [place] [address] [address] [place] [address] Care Teams Hide And Skin Processing Worker Relationship Specialty Start Date End Date Emilie Freeman MD PCP - General Internal Medicine 05/22/22
--- OUTSIDE RECORDS SUMMARY | 2025-01-25 12:11 | XMS_ITS | Encounter Summary ---
Author Organization [facility] Address [phone] [facility] [place] [address] Care Team Providers Care Methods Specialist Engineer Name Role Phone Emilie Freeman MD Unavailable [phone] Alyce Woods [facility] Primary Care Provid er Victor M Oquendo MD Unavailable [phone] Encounter Details Date Type Department Care Team (Late st Contact Info) Description 12/28/2024 Orders Only [facility] Health Info Management Virtual Department [address] [place] [address] Provider, MD Grady [address] [place] [id number] Social History Tobacco Use Types Packs/Day Years Used Date Smoking Tobacco: Never Smokeless Tobacco: Never Alcohol Use Standard Drinks/Week Comments Not Currently [...] high school, GED, job training, learning the [place] language, technical skills, or developing parenting skills)? [...] is your housing situation today? I have franco sing 11/07/2024 How many times have you move [...] Orientation Straight 03/24/2022 12 :52 PM EDT documented as of this encounter Plan of Treatment Upcoming Encounters Date Type Department Care Team (Late st Contact Info) Description 05/19/2025 9:30 AM EDT Office Visit [facility] [address] [place] [address] Zoltanjohana Alycekevin Wolfe CNP [address] [place] [phone] [email or web address] 11/20/2025 10:30 AM EST Office Visit [facility] [address] [place] [address] Alyce Woods CNP [address] [place] [phone] [email or web address] documented as of this encounter Procedures Procedure Name Priority Date/Time Associated Diagnosis Comments OUTSIDE IMAGING Routine 07/01/2024 6:22 PM EDT documented in this encounter Results * Outside Imaging Report Only (07/01/2024 6:22 PM EDT) Historical Provider IMG XR CHEST documented in this encounter Visit Diagnoses Not on filedocumented in this encounter Additional Health Concerns Assessment Noted Time PHQ-2 Depression Total Score: 0 11/07/20 24 6:42 PM EST documented as of this encounter Care Teams Methods Specialist Engineer Relationship Specialty Start Date End Date Chuck Alycekevin Wolfe CNP [address] [place] [phone] PCP - General Family Medicine 10/28/23 Emilie Freeman MD [address] [place] [id number] Internal Medicine 03/21/22 Victor M Oquendo MD [address] [place] [id number] Rush Seater Cardiac Electrophysiology 11/14/24 documented as of this encounter Additional Source Comments The information contained in this document represents components of the legal health record. It is not the complete legal health record.[facility]
== END 2025-01-25 11:01 | disposition home or self-care (01) ==
PROVIDERS: PCP Nurse Practitioner Family; Visit Provider Internal Medicine Rheumatology
DX: M70.61 Trochanteric bursitis, right hip (principal); M70.62 Trochanteric bursitis, left hip
CPT/HCPCS: 20610; 99214

== ENCOUNTER 2025-01-25 10:06 | Outpatient (REF) | payer OTHER, SELFPAY ==
--- OUTSIDE RECORDS SUMMARY | 2025-01-25 14:11 | XMS_ITS | Clinical Summary ---
Author Organization [facility] lin Address [address] [place] [address] Care Team Providers Care Recruiting Manager Name Role Phone Emilie Freeman MD Primary Care Provider [phone] Immunizations Name Administration Dates Next Due Boostrix [...] Adults 18 yrs or above (or HM Modifier)([facility]) 1979 Hepatitis C Virus Infection in Adolescents and Adults: Screening (or Modifier) ([facility]) 1979 [facility] Screening Reminder: Annually for all adults ([facility]) 1979 Tobacco Smoking Cessation: i n Adults excluding Women: Behavioral and Pharmacotherapy Interventions ([facility]) 1979 Cervical Cancer Screenin-65 yrs of age (or Modifier) 1982 Cervical Cancer Screening: P ap every 3 yrs pts age 21-65 1982 Cervical Cancer: Pap Screeni ng with Modifier timing ([facility]) 1982 Cervical Cancer: hrHPV alone or with cotesting Pap for Pts 30-65yrs screening every 5yrs ([facility]) 1982 Colorectal Cancer Screening 45 -75 Yrs (or HM Modifier) 2006 Colorectal Cancer: FLEXIBLE SIGMOIDOSCOPY Screening every 5 yrs 2006 Colorectal Cancer: Fecal Immunochemical Test (FIT) Annually [facility] 2006 Colorectal Cancer: High-sensitivity gFOBT Screening Annually [facility] 2006 Colorectal Cancer: Stool Cologuard Screening every 3 yrs 2006 Colorectal Cancer:CT Colonography Screening every 5 yrs 2006 Lipid Screening: Every 5 yrs for Women aged 45+ (or HM Modifier) ([facility]) 2007 Breast Cancer: Screening Annually age 50-74 yrs (or HM Modifier)([facility]) 2011 Zoster/Shingles Vaccine Seri es Screening: Adults aged 18+ yrs (or HM Modifiers)([facility]) (1 of 2) 2011 Flu Vaccination: Yearly for ages 18mos through 64 years (or Modifier)([facility]) 06/30/2024 COVID-19 Vaccine Screening: Initial Series and Booster Status ([facility]) ( - 2023- season) 2024 DTaP/Tdap/Td Vaccines ([facility]) (3 - Td or Tdap) 05/22/2032 05/22/2022, 09/27/2010 RSV Vaccines (1 - 1-dose 75+ series) 2036 Pneumococcal Vaccination Screening: Pts 0-19 & 19-64 yrs of age ([facility]) Aged Out No longer eligible based on patient's age to complete this topic Medical Devices Not on [place] [address] [place] [id number] Care Teams Recruiting Manager Relationship Specialty Start Date End Date Emilie Freeman MD PCP - General Internal Medicine 05/22/22
[2025-01-25 18:54] LABS: Alanine Aminotransferase 25 U/L (0-31); Aspartate Amino Transferase 31 U/L (5-31); Estimated Glomerular Filt Rate > 60
== END 2025-01-25 10:07 | disposition home or self-care (01) ==
LOC: HO.HKASLDS 10:06
PROVIDERS: Visit Provider Internal Medicine Rheumatology
DX: Z79.60 Long term (current) use of unspecified immunomodulators and immunosuppressants (principal)
CPT/HCPCS: 36415; 82565; 84450; 84460